=== PATIENT | male | born 1955 | race Two or more races ===

== ENCOUNTER 2025-01-10 10:15 | Inpatient (IN) | payer OTHER ==
[~2025-01-10] VITALS: Ht 182.9 cm; Wt 47.6 kg
[2025-01-10] MEDS ORDERED: METFORMIN HCL500 M3 PO (13:35)
[2025-01-10] MEDS ORDERED: FARXIGA10 MG PO (13:36)
[2025-01-10] MEDS ORDERED: LIPITOR20 MG (13:37)
[2025-01-10] MEDS ORDERED: RISPERIDONE O0.25 MG PO (13:38)
[2025-01-10] MEDS ORDERED: PROTONIX20 MG (13:38)
[2025-01-10] MEDS ORDERED: CLORAZEPATE D3.75 MG PO (13:39)
[2025-01-10] MEDS ORDERED: TAMS0.4C PO (13:40)
[2025-01-10] MEDS ORDERED: IRON325 MG PO (13:40)
[2025-01-10] MEDS ORDERED: PRE PROTEIN1 EACH PO (13:40)
[2025-01-15] MEDS ORDERED: METRONIDAZOLE/SODIUM CHLORIDE 500 MG/100 ML PIGGYBACK IV SCH (11:45)
[2025-01-15] MEDS ORDERED: CEFTRIAXONE SODIUM 2,000 MG VIAL IV ONE (11:45)
[2025-01-15] MEDS ORDERED: 0.9 % SODIUM CHLORIDE 1,000 ML IV SCH (13:00)
[2025-01-15] MEDS ORDERED: MORPHINE SULFATE 4 MG/ML CARTRIDGE IV PRN (13:00)
[2025-01-15] MEDS ORDERED: ONDANSETRON HCL 2 MG/ML VIAL IV PRN (13:00)
[2025-01-15] MEDS ORDERED: SIMETHICONE 125 MG CAPSULE PO SCH (13:00)
[2025-01-15] MEDS ORDERED: OxyCODONE HCL 5 MG TABLET (ROXICODONE) PO PRN (13:00)
[2025-01-15] MEDS ORDERED: HYOSCYAMINE SULFATE 0.125 MG TAB.SUBL SL SCH (13:00)
[2025-01-15] MEDS ORDERED: ACETAMINOPHEN 500 MG GEL..CAP PO SCH (14:00)
[2025-01-15] MEDS ORDERED: hydrALAZINE HCL 20 MG VIAL IV PRN (14:45)
[2025-01-15] MEDS ORDERED: DEXTROSE 50 % IN WATER 0.5 G/ML VIAL IV PRN (14:45)
[2025-01-15] MEDS ORDERED: INSULIN LISPRO 1,000 UNIT/10 ML UNITS SUBCUTANEO PRN (14:45)
[2025-01-15 15:27] LABS: BASO % 0.4 % (0.1-1.2); EOS # 0.07 (0.04-0.54); EOS % 1.3 % (0.7-7.0); LYMPH # 0.59 (1.18-3.74); LYMPH % 11.3 % (19.3-53.1); MEAN PLATELET VOLUME 9.50 fl (9.4-12.4); MONO # 0.23 (0.24-0.82); MONO % 4.4 % (4.7-12.5); NEUT # 4.29 (1.56-6.13); NEUT % 81.8 % (34.0-71.1); RED CELL DISTRIBUTION WIDTH 17.7 % (11.6-14.4)
[2025-01-15] MEDS ORDERED: GABAPENTIN 300 MG CAPSULE PO SCH (17:00)
[2025-01-15] MEDS ORDERED: POLYETHYLENE GLYCOL 3350 17 GM BLIST.PACK PO SCH (17:00)
[2025-01-15] MEDS ORDERED: METOCLOPRAMIDE HCL 5 MG/ML VIAL IV SCH (17:00)
[2025-01-15 18:28] LABS: URINE APPEARANCE Clear; URINE BILIRRUBIN Negative (NEGATIVE); URINE BLOOD Small; URINE COLOR Yellow; URINE KETONE Trace (NEGATIVE); URINE LEUKOCYTE Moderate; URINE NITRATE Positive; URINE PROTEIN Trace (NEGATIVE); URINE UROBILINOGEN 0.2 E.U./dl
[2025-01-15 18:32] LABS: URINE BACTERIA 8676.7 uL (0.0-1933); URINE RBC 64.6 uL (0.0-20.8); URINE WBC 800.1 uL (0.0-23.2)
[2025-01-15 18:36] LABS: URINE CAST 0.87 uL (0.0-1.40); URINE EPITHELIAL CELLS 0.6 uL (0.0-38.8); URINE GLUCOSE >=1000 MG/DL (NEGATIVE)
[2025-01-15] MEDS ORDERED: FAMOTIDINE/PF 20 MG/2 ML VIAL IV PUSH SCH (21:00)
[2025-01-15] MEDS ORDERED: TAMSULOSIN HCL 0.4 MG CAP PO SCH (21:00)
[2025-01-15 22:58] VITALS: BP 124/59; O2SAT 100
[2025-01-15 23:16] VITALS: BP 124/59; O2SAT 93
[2025-01-16] VITALS (14 sets, daily range): BP systolic 90–136; BP diastolic 45–65; O2SAT 97–100
[2025-01-16] MEDS ORDERED: 0.9 % SODIUM CHLORIDE 500 ML IV ONE ×2 (02:15→06:15)
[2025-01-16] MEDS ORDERED: NOREPINEPHRINE BITARTRATE 4 MG in DEXTROSE 5 % IN WATER 250 ML IV SCH (06:15)
[2025-01-16 06:32] LABS: BASO % 0.2 % (0.1-1.2); EOS # 0.01 (0.04-0.54); EOS % 0.1 % (0.7-7.0); LYMPH # 0.61 (1.18-3.74); LYMPH % 7.5 % (19.3-53.1); MEAN PLATELET VOLUME 9.70 fl (9.4-12.4); MONO # 0.52 (0.24-0.82); MONO % 6.4 % (4.7-12.5); NEUT # 6.90 (1.56-6.13); NEUT % 85.6 % (34.0-71.1); RED CELL DISTRIBUTION WIDTH 17.5 % (11.6-14.4)
[2025-01-16 07:13] LABS: BUN CREA RATIO 14.0 (7.0-25.0); CREATININE SERUM 1.45 mg/dL (0.70-1.30); GFR 48.25; GLUCOSE FASTING 84.0 mg/dL (65-100); OSMOLALITY SERUM 291.0 MOSM/KG (275-295)
[2025-01-16] MEDS ORDERED: LACTOBACILLUS ACIDOPHILUS 1 CAP CAP PO SCH (09:00)
[2025-01-16] MEDS ORDERED: DEXTROSE 50 % IN WATER 0.5 G/ML VIAL IV PRN (11:45)
[2025-01-16] MEDS ORDERED: INSULIN LISPRO 1,000 UNIT/10 ML UNITS SUBCUTANEO PRN (11:45)
[2025-01-16] MEDS ORDERED: ATORVASTATIN CALCIUM 20 MG TABLET PO SCH (17:00)
[2025-01-16] MEDS ORDERED: ENOXAPARIN SODIUM 40 MG/0.4 ML SYRINGE SUBCUTANEO SCH (17:00)
[2025-01-17] VITALS (13 sets, daily range): BP systolic 87–178; BP diastolic 43–84; O2SAT 98–100
[2025-01-17] MEDS ORDERED: ENOXAPARIN SODIUM 40 MG/0.4 ML SYRINGE SUBCUTANEO SCH (09:00)
[2025-01-17] MEDS ORDERED: DIPHENHYDRAMINE HCL 50 MG/ML VIAL 1ML IV ONE (22:30)
[2025-01-18 04:00] VITALS: BP 121/64; O2SAT 100
[2025-01-18] MEDS ORDERED: PIPERACILLIN/TAZOBACTAM SODIUM 2.25 GM in DEXTROSE 5 % IN WATER 50 ML IV SCH (06:00)
[2025-01-18 07:09] VITALS: BP 134/77; O2SAT 100
[2025-01-18] MEDS ORDERED: MEROPENEM 500 MG/VIAL VIAL IV SCH (09:00)
[2025-01-18 12:00] VITALS: BP 119/61; O2SAT 100
[2025-01-18 16:00] VITALS: BP 149/73; O2SAT 95
[2025-01-19 06:48] LABS: BASO % 0.5 % (0.1-1.2); EOS # 0.08 (0.04-0.54); EOS % 1.8 % (0.7-7.0); LYMPH # 0.80 (1.18-3.74); LYMPH % 18.5 % (19.3-53.1); MEAN PLATELET VOLUME 9.40 fl (9.4-12.4); MONO # 0.26 (0.24-0.82); MONO % 6.0 % (4.7-12.5); NEUT # 3.14 (1.56-6.13); NEUT % 72.5 % (34.0-71.1); RED CELL DISTRIBUTION WIDTH 17.2 % (11.6-14.4)
[2025-01-19 07:26] LABS: BUN CREA RATIO 11.0 (7.0-25.0); CREATININE SERUM 1.22 mg/dL (0.70-1.30); GFR 58.9; GLUCOSE FASTING 80.0 mg/dL (65-100); OSMOLALITY SERUM 286.0 MOSM/KG (275-295)
[2025-01-19 08:00] VITALS: BP 153/79; O2SAT 95
[2025-01-19] MEDS ORDERED: AMOX-CLAV 875-1 EACH PO (09:12)
[2025-01-19] MEDS ORDERED: LINEZOLID600 MG PO (09:13)
[2025-01-19] MEDS ORDERED: INTESTINEX680 M1 PO (09:14)
[2025-01-19] MEDS ORDERED: ERTAPENEM1 GM IJ (09:16)
[2025-01-19] MEDS ORDERED: POTASSIUM PHOS,M-BASIC-D-BASIC 3 MM/ML VIAL IV NR (11:30)
[2025-01-19] MEDS ORDERED: MAGNESIUM SULFATE IN WATER 50 ML IV NR (11:30)
[2025-01-19] MEDS ORDERED: SOD FERRIC GLUC COMPLX/SUCROSE 62.5 MG in 0.9 % SODIUM CHLORIDE 50 ML IV NR (12:00)
[2025-01-19] MEDS ORDERED: POTASSIUM CHLORIDE 20MEQ/100ML H2O PB IV NR (12:00)
[2025-01-19] MEDS ORDERED: POTASSIUM CHLORIDE 8 MEQ TABLET PO STA (12:36)
[2025-01-19] MEDS ORDERED: NAPH,MB-DB/K PH,MBDB 1 PKT PACKET PO STA (12:37)
[2025-01-19 16:49] VITALS: BP 134/66; O2SAT 95
[2025-01-20] MEDS ORDERED: SOD FERRIC GLUC COMPLX/SUCROSE 62.5 MG in 0.9 % SODIUM CHLORIDE 50 ML IV SCH (09:00)
[2025-01-20] MEDS ORDERED: SOD FERRIC GLUC COMPLX/SUCROSE 62.5 MG in 0.9 % SODIUM CHLORIDE 50 ML IV NR (09:00)
== END 2025-01-19 16:00 | DRG 330 ==
LOC: O/R 01-15 09:01 → SURG 01-15 10:15 → ICU 01-15 21:03 → SURH 01-18 14:54
PROVIDERS: Internal Medicine Geriatric Medicine; ADMIT Surgery; ATTEND Surgery
PROC: 0DBP4ZZ Excision of Rectum, Percutaneous Endoscopic Approach (ICD-10-PCS; 2025-01-15)
PROC: 07BB4ZZ Excision of Mesenteric Lymphatic, Percutaneous Endoscopic Approach (ICD-10-PCS; 2025-01-15)
PROC: 0DJD8ZZ Inspection of Lower Intestinal Tract, Via Natural or Artificial Opening Endoscopic (ICD-10-PCS; 2025-01-15)
PROC: 0DTN4ZZ Resection of Sigmoid Colon, Percutaneous Endoscopic Approach (ICD-10-PCS; principal; 2025-01-15 14:30)
PROC: 02HV33Z Insertion of Infusion Device into Superior Vena Cava, Percutaneous Approach (ICD-10-PCS; 2025-01-16)
PROC: 8E0ZXY6 Isolation (ICD-10-PCS; 2025-01-18)
DX: C19 Malignant neoplasm of rectosigmoid junction (principal); K92.2 Gastrointestinal hemorrhage, unspecified; N39.0 Urinary tract infection, site not specified; B96.29 Other Escherichia coli [E. coli] as the cause of diseases classified elsewhere; E11.22 Type 2 diabetes mellitus with diabetic chronic kidney disease; N18.30 Chronic kidney disease, stage 3 unspecified; Z79.4 Long term (current) use of insulin; Z74.01 Bed confinement status